=== PATIENT | female | born 1975 | race Two or more races ===

== ENCOUNTER 2019-01-20 18:48 | Emergency (ER) | payer SELFPAY ==
[~2019-01-20] VITALS: Ht 160 cm; Wt 70.8 kg
--- NOTE | 2019-01-20 18:57 | NUR ---
patient [id number], c/o palpitation 30mins TUNNEL MAN. On room air, breathing evenly and unlabored. Connected to the monitor and pulse ox. Will continue to monitor accordingly.
--- NOTE | 2019-01-20 18:57 | NUR ---
Dr. Jarquin at bedside for eval.
[2019-01-20 19:13] LABS: BASOPHILS % (AUTO) 0.4 % (0.0-2.0); EOSINOPHILS % (AUTO) 13.4 % (0.0-6.0); HEMATOCRIT 36 % (33-45); HEMOGLOBIN 11.9 g/dL (11.5-14.8); LYMPHOCYTES % (AUTO) 49.6 % (20.0-44.0); MEAN CORPUSCULAR HGB CONC 33 g/dl (31.0-36.0); MEAN CORPUSCULAR VOLUME 83 fL (82-100); MONOCYTES # (AUTO) 0.4 /CMM (0.1-1.30); MONOCYTES % (AUTO) 7.2 % (2.0-12.0); NEUTROPHILS # (AUTO) 1.8 /CMM (1.8-8.9); NEUTROPHILS % (AUTO) 29.4 % (43.0-81.0); PLATELET COUNT (AUTO) 263 /CMM (150-450)
[2019-01-20 19:21] LABS: CALCIUM, SERUM 8.4 mg/dL (8.5-10.1); CARBON DIOXIDE 25 mmol/L (21-32); CHLORIDE 99 mmol/L (98-107); CREATININE 0.7 mg/dL (0.6-1.3); GLUCOSE 95 mg/dL (74-106); POTASSIUM 3.2 mmol/L (3.5-5.1); SODIUM SERUM 134 mmol/L (136-145); UREA NITROGEN, BLOOD 8 mg/dL (7-18)
[2019-01-20] MEDS ORDERED: ALPRAZOLAM 0.25 MG TABLET ONE (19:23)
[2019-01-20] MEDS ORDERED: ALPRAZOLAM 0.25 MG TABLET PO ONE (19:30)
[2019-01-20 19:43] LABS: THYROID STIMULATING HORMONE 3.008 uIU/mL (0.358-3.74)
[2019-01-20] MEDS ORDERED: POTASSIUM CHLORIDE 20 MEQ TAB.PRT.SR PO ONE ×2 (19:43→20:00)
--- NOTE | 2019-01-20 20:33 | NUR ---
Patient discharged to home in stable condition. Written and verbal after care instructions given. Patient verbalizes understanding of instruction.
[2019-01-20 20:34] VITALS: BP 123/96
== END 2019-01-20 20:40 | disposition home or self-care (01) ==
LOC: ER 18:50 → EDBD 18:50 → ER 20:40
DX: F41.9 Anxiety disorder, unspecified (principal); E87.6 Hypokalemia; F10.10 Alcohol abuse, uncomplicated; F17.200 Nicotine dependence, unspecified, uncomplicated; R00.0 Tachycardia, unspecified; Y90.9 Presence of alcohol in blood, level not specified; Z60.2 Problems related to living alone; Z98.890 Other specified postprocedural states
CPT/HCPCS: 36415; 71045-TC; 80048-TC; 84443-TC; 84484-TC; 84702-TC; 85025-TC